=== PATIENT | female | born 1960 ===

== ENCOUNTER 2020-09-14 19:33 | Emergency (ER) | payer SELFPAY ==
[2020-09-14 20:24] VITALS: BP 166/105; PULSE 89; RESP 24; TEMP 36.2; O2SAT 95; BMI 10.1
== END 2020-09-14 23:11 | disposition left against medical advice (07) ==
PROVIDERS: Emergency Provider Emergency Medicine
DX: R11.10 Vomiting, unspecified (principal); Z87.01 Personal history of pneumonia (recurrent); G80.9 Cerebral palsy, unspecified; Z93.1 Gastrostomy status
CPT/HCPCS: 99281; 99282